=== PATIENT | male | born 1950 | race Caucasian/White ===

== ENCOUNTER 2020-02-05 19:53 | Emergency (ER) | payer OTHER ==
[~2020-02-05] VITALS: Ht 170.2 cm; Wt 68.0 kg
[2020-02-05 20:23] VITALS: BP 166/75
--- NOTE | 2020-02-05 20:23 | NUR ---
Patient BIBA ALS, transferred to bed 12. RN evaluating patient at bedside.
--- NOTE | 2020-02-05 20:42 | NUR ---
69 Y/O MALE PRESENTED TO ED C/O DIZZINESS X 1 HOUR. PT STATES HE WAS WALKING AND STARTED FEELING DIZZY AND LIGHTHEADED. PT DENIES N/V/D/FALL/FEVER. PT DENIES WEAVER AND NUMBNESS AND TINGLING. PT STATES HE HAD A SIMILAR EPISODE LAST YEAR. PT STATES HE TOOK HIS BP MEDCATIONS TODAY AT 1800. PT RESTING IN BED, LOCKED AND IN LOWEST POSITION, HOB ELEVATED, SIDE RAILS X2 FOR PT SAFETY. RR EVEN AND UNLABORED, VSS. PT CONNECTED TO CARDIAC MONTIOR, PULSE OX AND BP CUFF. PMH: HTN, OPEN HEART SURGERY (LAST SURGERY ON 2018) [facility] RX: ATORVASTATIN 80 MG, CLOPIDOGREL, LISINOPRIL 25MG, METROPOROL 25 MG, LISINOPRIL 10 MG, ASPIRIN 81 MG
--- NOTE | 2020-02-05 21:19 | NUR ---
PT TO CT VIA W/C
[2020-02-05 22:02] LABS: BASOPHILS % (AUTO) 0.6 % (0.0-2.0); EOSINOPHILS % (AUTO) 0.7 % (0.0-4.0); HEMATOCRIT 39.3 % (36-52); HEMOGLOBIN 12.9 g/dL (12.0-18.0); LYMPHOCYTES # (AUTO) 0.8 K/uL (2.0-11.5); LYMPHOCYTES % (AUTO) 15.6 % (20.5-51.1); MEAN CORPUSCULAR HEMOGLOBIN 29 pg (27-31); MEAN CORPUSCULAR HGB CONC 33 g/dL (33-37); MEAN CORPUSCULAR VOLUME 87.3 fL (80-94); NEUTROPHILS # (AUTO) 3.5 K/uL (1.8-7.7); NEUTROPHILS % (AUTO) 65.1 % (42.2-75.2); PLATELET COUNT (AUTO) 170 K/uL (140-450); RED CELL DISTRIBUTION WIDTH 15.8 % (11.6-13.7); WHITE BLOOD COUNT (AUTO) 5.4 K/uL (4.8-10.8)
[2020-02-05 22:18] LABS: ALBUMIN 3.5 g/dL (3.4-5.0); ANION GAP 13.1 (8-16); CARBON DIOXIDE 28.5 mmol/L (21-32); CREATININE 1.1 mg/dL (0.6-1.3); POTASSIUM 3.6 mmol/L (3.5-5.1); TOTAL BILIRUBIN 0.2 mg/dL (0.0-1.0)
--- NOTE | 2020-02-05 23:05 | NUR ---
Patient discharged with v/s stable. Written and verbal after care instructions given and explained. Patient verbalized understanding. Ambulatory with steady gait. All questions addressed prior to discharge. Advised to follow up with PMD. Pt no complain of dizziness and walks in steady gait, no complain noted.
[2020-02-05 23:06] VITALS: BP 131/80
== END 2020-02-05 23:05 | disposition home or self-care (01) ==
LOC: MED 19:53
DX: R42 Dizziness and giddiness (principal); I10 Essential (primary) hypertension; I51.9 Heart disease, unspecified
CPT/HCPCS: 36415; 70450; 80053; 85025; 99284